=== PATIENT | male | born 1990 | race Caucasian/White ===

== ENCOUNTER 2024-04-22 18:52 | Emergency (ER) | payer OTHER ==
[~2024-04-22] VITALS: Ht 182.9 cm; Wt 75.8 kg
[2024-04-22 19:16] VITALS: BP 141/81; PULSE 71; TEMP 98.2; O2SAT 99
[2024-04-22 21:07] VITALS: RESP 20
== END 2024-04-22 21:08 | disposition home or self-care (01) ==
LOC: ER 18:52
DX: S61.217A Laceration without foreign body of left little finger without damage to nail, initial encounter (principal); S61.213A Laceration without foreign body of left middle finger without damage to nail, initial encounter; W25.XXXA Contact with sharp glass, initial encounter; Y93.89 Activity, other specified; Y92.89 Other specified places as the place of occurrence of the external cause; Y99.8 Other external cause status
CPT/HCPCS: 12001; 73120; 99283; A6449